=== PATIENT | male | born 1960 | race Caucasian/White ===

== ENCOUNTER 2020-09-10 11:18 | Emergency (ER) | payer BC ==
--- NOTE | 2020-09-10 13:49 | US ---
DUPLEX ARTERIAL ULTRASOUND LEFT LOWER EXTREMITY, 09/10/2020 COMPARISON: None. CLINICAL HISTORY: 59-year-old male with calf pain. Pulses are difficult to palpate. TECHNIQUE: Grayscale and color spectral Doppler ultrasound imaging of the left lower extremity arterial system was performed. FINDINGS: There is multiphasic flow in the common femoral artery with a velocity of 104 cm/second. Multiphasic flow in the deep femoral artery with a velocity of 46 cm/second. Multiphasic flow along the superficial femoral artery with velocities ranging between 52 cm/second and 60 cm/second. Multiphasic flow in the popliteal artery with a velocity of 38 cm/second proximally and 32 cm/second distally. Proximal posterior tibial artery has monophasic flow with a velocity of 18 cm/second. In the mid and distal portions, there is no flow. Multiphasic flow in the proximal anterior tibial artery with a velocity of 52 cm/second. Dorsalis pedis artery was not found. IMPRESSION: No evidence for hemodynamically-significant arterial stenosis or occlusion above the knee. There is disease in the distal runoff vessels with no flow in the distal posterior tibial or dorsalis pedis artery. This may be due to critical limb ischemia or could be acute thromboembolism, depending on the clinical scenario. Scott Choudhary M.D. Vascular [facility] Interventional [email or web address]/Dictated by: Scott Choudhary MD @ 09/11/2020 10:16:00 AM (Electronically Signed)
--- NOTE | 2020-09-10 13:53 | US ---
INDICATION: Calf pain. History of DVT. TECHNIQUE: Ultrasound venous duplex lower left extremity. Compression venous exam was performed using campbell-scale, color Doppler, and spectral Doppler analysis. COMPARISON: August 02, 2019. FINDINGS: Sonographic imaging demonstrates the left common femoral, deep femoral, superficial femoral, and greater saphenous and the contralateral right common femoral veins to be fully compressible with normal color Doppler blood flow. A nonocclusive relatively echogenic thrombus is in the popliteal vein extending a short distance into the posterior tibial vein. IMPRESSION: Chronic appearing nonocclusive DVT in the popliteal vein. Acute on chronic thrombus is not definite but difficult to exclude. Remainder of the veins in the left lower extremity are unremarkable. Dictated by Casa Galvan MD @ 09/10/2020 1:51:[address] Casa Galvan @ Sep 10 2020 1:51PM
[2020-09-10] MEDS ORDERED: Sodium Chloride 0.9% 10 ML Syringe FLUSH PRN (14:15)
[2020-09-10] MEDS ORDERED: Heparin Sodium 5,000 Units/ML Vial IVPUSH ONE (14:15)
[2020-09-10] MEDS ORDERED: Sodium Chloride 0.9% 2.5 ML Syringe FLUSH PRN (14:15)
[2020-09-10] MEDS ORDERED: Aspirin 81 MG Tab.Chew PO ONE (14:22)
[2020-09-10 14:29] LABS: CARBON DIOXIDE,CO2 24.9 mmol/L (21.0-32.0); POTASSIUM,K 4.1 mmol/L (3.5-5.1)
[2020-09-10] MEDS ORDERED: Heparin Sodium/0.45% NaCl 500 ML IV SCH (14:30)
--- NOTE | 2020-09-10 14:46 | EDM.PDOC ---
ED HPI GENERAL MEDICAL PROBLEM - General Chief Complaint: Lower Extremity Injury/Pain Stated Complaint: DVT Time Seen by Provider: 09/10/20 11:19 Source of Information: Reports: Patient History Limitations: Reports: No Limitations - History of Present Illness INITIAL COMMENTS - FREE TEXT/NARRATIVE: HISTORY AND PHYSICAL: History of present illness: Patient is a 59-year-old male who presents emergency room today with concern of left calf pain that started at about 8 this morning. Patient states that he had a DVT in his left calf approximately 1 year ago and states that at that time he had the same symptoms as he is having today. Patient denies any swelling or redness of the calf but states that he did not have this when he had a DVT 1 year ago. Patient states that he has been on blood thinning medication for 1 year but stopped the medication 1 month ago and guidance with his primary care provider. Patient denies any trauma or injury to the leg or any other associa tive symptoms. Patient denies fever, chills, chest pain, shortness of breath, or cough. Denies headache, neck stiff ness, change in vision, syncope, or near syncope. Denies nausea, vomiting, abdominal pain, diarrhea, constipation, or dysuria. Has not noted any blood in urine or stool. Patient has been eating and drinking appropriately. Review of systems: As per history of present illness and below otherwise all systems reviewed and negative. Past medical history: As per history of present illness and as reviewed below otherwise noncontributory. Surgical history: As per history of present illness and as reviewed below otherwise noncontributory. Social history: See social history for further information Family history: As per history of present illness and as reviewed below otherwise noncontributory. Physical exam: General: Patient is alert, oriented, and in no acute distress. Patient sitting comfortably on exam table. Vitals stable and reviewed by me. HEENT: Atraumatic, normocephalic, pupils equal and reactive bilaterally, negative for conjunctival pallor or scleral icterus, mucous membranes moist, TMs normal bilaterally, throat clear, neck supple, nontender, trachea midline. No drooling or trismus noted. No meningeal signs. No hot potato voice noted. Lungs: Clear to auscultation, breath sounds equal bilaterally, chest nontender. Heart: S1S2, regular rate and rhythm without overt murmur Abdomen: Soft, nondistended, nontender. Negative for masses or hepatosplenomegaly. Negative for costovertebral tenderness. Pelvis: Stable nontender. Genitourinary: Deferred. Rectal: Deferred. Skin: Intact, warm, dry. No lesions or rashes noted. Extremities: No obvious deformity of the complete bilateral lower extremities. Patient has full range of motion of bilateral lower extremities without pain or difficulty. Intact sensation to light and deep touch of complete bilateral lower extremities without deficit. DP/PT pulses are intact via doppler US but are difficult to palpate grossly but LLE is warm, with cap refill < 2 seconds of the LLE. Otherwise, Atraumatic, negative for cords or calf pain. Neurovascular unremarkable. Neuro: Awake, alert, oriented. Cranial nerves II through XII unremarkable. Cerebellum unremarkable. Motor and sensory unremarkable throughout. Exam nonfocal. Notes: On initial exam, patient is nontoxic, in no acute distress, and vitally stable. He does have intact sensation of his a complete left lower extremity with no obvious deformity, no erythema, and the lower extremity is warm with capillary refill less than 2 seconds. His dorsalis pedis and posterior tibial pulses are difficult to palpate grossly but they are intact with Doppler. Patient presents secondary to calf pain that started this morning which she describes as feeling similar to a DVT that he had approximately 1 year ago. He did stop blood thinning medication 1 month ago. Clinically I am concerned for DVT. Will obtain venous doppler US for concern DVT will also obtain arterial US due to difficulty grossly palpating pulses on exam but at this time, but are intact via doppler. The arterial ultrasound shows no distinct area of occlusion. Doppler blood flow decreases below the proximal posterior tibial artery and blood flow could be demonstrated in the foot. No other distinct abnormality. Venous ultrasound shows a chronic appearing nonocclusive DVT in the popliteal vein. Acute on chronic thrombus is not definite but difficult to exclude. Remainder of the veins in the left lower extremity are unremarkable. Upon reevaluation of patient, examination of his foot now shows that it is white, cold but kurtis is still able to move the foot / digits and intact sensation. He stats that this did happen earlier this morning but resolved once getting to the ED during my examination. He does express a new "tingly" sensation of the toes. I am concerned for acute arterial ischemia / occlusion. Color improvement noted slightly when patient sits vs laying down. Heparin bolus / gtt initiated. I did call and speak to the vascular surgeon, Dr. Rollins, [facility] and accepting of transfer and will transfer via Flight. Flight arranged. Flight is delayed 45 minutes due to other patient status. Flight at bedside. Patient discharged to flight in stable condition. Diagnostics: Venous/arterial US, CBC, CMP, PT/INR, PTT Therapeutics: ASA, Heparin GTT/Bolus Impression: Acute arterial ischemia/occlusion, left lower extremity Deep venous thrombosis, left lower extremity Plan: Transfer to Dr. Rollins, vascular surgery, via flight Definitive disposition and diagnosis as appropriate pending reevaluation and review of above. left calf Pain Score (Numeric/FACES): 2 - Related Data Allergies Allergy/AdvReac Type Severity Reaction Status Date / Time No Known Allergies Allergy Verified 09/10/20 11:34 Home Meds: Home Meds . [No Known Home Meds] 09/10/20 [History] Past Medical History Cardiovascular History: Reports: Blood Clots/VTE/DVT - Infectious Disease History Infectious Disease History: Reports: None Social & Family History - Family History Family Medical History: No Pertinent Family History - Tobacco Use Tobacco Use Status *Q: Never Tobacco User - Caffeine Use Caffeine Use: Reports: None - Recreational Drug Use Recreational Drug Use: No Review of Systems - Review of Systems Review Of Systems: Comprehensive ROS is negative, except as noted in HPI. ED EXAM, GENERAL - Physical Exam Exam: See Below (see dictation) Course - Vital Signs Last Recorded V/S: Last Vital Signs Temp 97.8 F 09/10/20 11:35 Pulse 74 09/10/20 11:35 Resp 18 09/10/20 11:35 BP 185/75 H 09/10/20 11:35 Pulse Ox 98 09/10/20 11:35 - Orders/Labs/Meds Orders: Active Orders 24 hr Category Date Time Status Heparin Sodium/0.45% NaCl [Heparin 25,000 Units in 1/2 Med 09/10/20 14:30 Active NS 500 ML] 500 ml IV TITRATE Sodium Chloride 0.9% [Saline Flush] Med 09/10/20 14:15 Active 10 ml FLUSH ASDIRECTED PRN Sodium Chloride 0.9% [Saline Flush] Med 09/10/20 14:15 Active 2.5 ml FLUSH ASDIRECTED PRN Saline Lock Insert [OM.PC] Stat Oth 09/10/20 14:15 Ordered Medication Orders Heparin Sodium/Sodium Chloride (Heparin 25,000 Units In 1/2 Ns 500 Ml) 500 mls @ 25.958 mls/hr IV TITRATE JESSE; Protocol Last Admin: 09/10/20 14:40 Dose: 12.8 units/kg/hr, 25.958 mls/hr Documented by: MARGARET Cosigned by: SANDRA Sodium Chloride (Sodium Chloride 0.9% 10 Ml Syringe) 10 ml FLUSH ASDIRECTED PRN PRN Reason: Keep Vein Open Last Admin: 09/10/20 14:39 Dose: 10 ml Documented by: MARGARET Sodium Chloride (Sodium Chloride 0.9% 2.5 Ml Syringe) 2.5 ml FLUSH ASDIRECTED PRN PRN Reason: Keep Vein Open Last Admin: 09/10/20 14:39 Dose: 2.5 ml Documented by: MARGARET Labs: Laboratory Tests 09/10/20 09/10/20 09/10/20 Range/Units 11:40 11:40 11:40 WBC 7.49 (4.0-11.0) K/uL RBC 5.62 (4.50-5.90) M/uL Hgb 17.3 H (13.0-17.0) g/dL Hct 50.4 H (38.0-50.0) % MCV 89.7 (80.0-98.0) fL MCH 30.8 (27.0-32.0) pg MCHC 34.3 (31.0-37.0) g/dL RDW Std Deviation 44.3 (28.0-62.0) fl RDW Coeff of Boy 14 (11.0-15.0) % Plt Count 170 (150-400) K/uL MPV 9.60 (7.40-12.00) fL Neut % (Auto) 56.1 (48.0-80.0) % Lymph % (Auto) 27.8 (16.0-40.0) % Boyle % (Auto) 12.4 (0.0-15.0) % Eos % (Auto) 3.3 (0.0-7.0) % Baso % (Auto) 0.4 (0.0-1.5) % Neut # (Auto) 4.2 (1.4-5.7) K/uL Lymph # (Auto) 2.1 (0.6-2.4) K/uL Boyle # (Auto) 0.9 H (0.0-0.8) K/uL Eos # (Auto) 0.3 (0.0-0.7) K/uL Baso # (Auto) 0.0 (0.0-0.1) K/uL Nucleated RBC % 0.0 /100WBC Nucleated RBCs # 0 K/uL INR 1.00 APTT 26.9 (18.6-31.3) SEC Sodium 139 (136-148) mmol/L Potassium 4.1 (3.5-5.1) mmol/L Chloride 103 (98-107) mmol/L Carbon Dioxide 24.9 (21.0-32.0) mmol/L BUN 17 (7.0-18.0) mg/dL Creatinine 1.4 H (0.8-1.3) mg/dL Est Cr Clr Drug Dosing 59.38 mL/min Estimated GFR (MDRD) 52.1 ml/min Glucose 99 (74-106) mg/dL Calcium 8.7 (8.5-10.1) mg/dL Total Bilirubin 0.4 (0.2-1.0) mg/dL AST 23 (15-37) IU/L ALT 41 (14-63) IU/L Alkaline Phosphatase 52 (46-116) U/L Total Protein 7.8 (6.4-8.2) g/dL Albumin 3.7 (3.4-5.0) g/dL Globulin 4.1 H (2.6-4.0) g/dL Albumin/Globulin Ratio 0.9 (0.9-1.6) Influenza Type A RNA (NEGATIVE) Influenza Type B RNA (NEGATIVE) SARS-CoV-2 RNA (RAMIN) (NEGATIVE) 09/10/20 Range/Units 14:25 WBC (4.0-11.0) K/uL RBC (4.50-5.90) M/uL Hgb (13.0-17.0) g/dL Hct (38.0-50.0) % MCV (80.0-98.0) fL MCH (27.0-32.0) pg MCHC (31.0-37.0) g/dL RDW Std Deviation (28.0-62.0) fl RDW Coeff of Boy (11.0-15.0) % Plt Count (150-400) K/uL MPV (7.40-12.00) fL Neut % (Auto) (48.0-80.0) % Lymph % (Auto) (16.0-40.0) % Boyle % (Auto) (0.0-15.0) % Eos % (Auto) (0.0-7.0) % Baso % (Auto) (0.0-1.5) % Neut # (Auto) (1.4-5.7) K/uL Lymph # (Auto) (0.6-2.4) K/uL Boyle # (Auto) (0.0-0.8) K/uL Eos # (Auto) (0.0-0.7) K/uL Baso # (Auto) (0.0-0.1) K/uL Nucleated RBC % /100WBC Nucleated RBCs # K/uL INR APTT (18.6-31.3) SEC Sodium (136-148) mmol/L Potassium (3.5-5.1) mmol/L Chloride (98-107) mmol/L Carbon Dioxide (21.0-32.0) mmol/L BUN (7.0-18.0) mg/dL Creatinine (0.8-1.3) mg/dL Est Cr Clr Drug Dosing mL/min Estimated GFR (MDRD) ml/min Glucose (74-106) mg/dL Calcium (8.5-10.1) mg/dL Total Bilirubin (0.2-1.0) mg/dL AST (15-37) IU/L ALT (14-63) IU/L Alkaline Phosphatase (46-116) U/L Total Protein (6.4-8.2) g/dL Albumin (3.4-5.0) g/dL Globulin (2.6-4.0) g/dL Albumin/Globulin Ratio (0.9-1.6) Influenza Type A RNA NEGATIVE (NEGATIVE) Influenza Type B RNA NEGATIVE (NEGATIVE) SARS-CoV-2 RNA (RAMIN) NEGATIVE (NEGATIVE) Meds: Medications Generic Name Dose Route Start Last Admin Trade Name Freq PRN Reason Stop Dose Admin Heparin Sodium/Sodium Chloride 500 mls @ 25.958 mls/hr 09/10/20 14:30 09/10/20 14:40 Heparin 25,000 Units In 1/2 Ns 500 Ml IV 12.8 units/kg/hr TITRATE JESSE 25.958 mls/hr Administration Protocol 12.8 UNITS/KG/HR Sodium Chloride 10 ml 09/10/20 14:15 09/10/20 14:39 Sodium Chloride 0.9% 10 Ml Syringe FLUSH 10 ml ASDIRECTED PRN Administration Keep Vein Open Sodium Chloride 2.5 ml 09/10/20 14:15 09/10/20 14:39 Sodium Chloride 0.9% 2.5 Ml Syringe FLUSH 2.5 ml ASDIRECTED PRN Administration Keep Vein Open Discontinued Medications Generic Name Dose Route Start Last Admin Trade Name Freq PRN Reason Stop Dose Admin Aspirin 324 mg 09/10/20 14:22 09/10/20 14:39 Aspirin 81 Mg Tab.Chew PO 09/10/20 14:23 324 mg ONETIME ONE Administration Heparin Sodium (Porcine) 5,000 units 09/10/20 14:15 09/10/20 14:40 Heparin Sodium 5,000 Units/Ml Vial IVPUSH 09/10/20 14:16 5,000 units .BOLUS ONE Administration Protocol Departure - Departure Time of Disposition: 14:54 Disposition: DC/Tfer to [facility] 02 Clinical Impression: Acute occlusion of artery of lower extremity Chronic deep vein thrombosis (DVT) Qualifiers: DVT location: lower extremity Affected thrombotic vein of extremity: unspecified vein of extremity Laterality: left Qualified Code(s): I82.502 - Chronic embolism and thrombosis of unspecified deep veins of left lower extremity - Discharge Information Referrals: Matt Ovalle MD [Primary Care Provider] - Forms: ED Department Discharge Sepsis Event Note (ED) - Evaluation Sepsis Screening Result: No Definite Risk - Focused Exam Vital Signs: Vital Signs Temp Pulse Resp BP Pulse Ox 09/10/20 11:35 97.8 F 74 18 185/75 H 98 - My Orders Last 24 Hours: My Active Orders 09/10/20 14:15 Sodium Chloride 0.9% [Saline Flush] 10 ml FLUSH ASDIRECTED PRN Sodium Chloride 0.9% [Saline Flush] 2.5 ml FLUSH ASDIRECTED PRN Saline Lock Insert [OM.PC] Stat 04/25/21 14:30 Heparin Sodium/0.45% NaCl [Heparin 25,000 Units in 1/2 NS 500 ML] 500 ml IV TITRATE - Assessment/Plan Last 24 Hours: My Active Orders 09/10/20 14:15 Sodium Chloride 0.9% [Saline Flush] 10 ml FLUSH ASDIRECTED PRN Sodium Chloride 0.9% [Saline Flush] 2.5 ml FLUSH ASDIRECTED PRN Saline Lock Insert [OM.PC] Stat 09/10/20 14:30 Heparin Sodium/0.45% NaCl [Heparin 25,000 Units in 1/2 NS 500 ML] 500 ml IV TITRATE
[2020-09-10 15:13] LABS: CORONAVIRUS COVID-19 NAA NEGATIVE (NEGATIVE); INFLUENZA A NAA NEGATIVE (NEGATIVE); INFLUENZA B NAA NEGATIVE (NEGATIVE)
== END 2020-09-10 16:09 ==
LOC: MW.ED 11:18
DX: I82.532 Chronic embolism and thrombosis of left popliteal vein (principal); I70.202 Unspecified atherosclerosis of native arteries of extremities, left leg; Z20.822 Contact with and (suspected) exposure to COVID-19
CPT/HCPCS: 0240U; 36415; 80053; 85025; 85610; 85730; 93926; 93971; 96365; 99285; A9270; J1644

== ENCOUNTER 2020-09-28 14:08 | Emergency (ER) | payer BC ==
--- NOTE | 2020-09-28 14:47 | EDM.PDOC ---
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 The patient states that he had been doing fine until the left ankle incision started to turn red a few days ago. He states that he was started on Keflex and it has continued to leak. He states that the redness has improved. He denies any increased pain. He states that it seems to be exacerbated by him walking on it. He was told by his vascular surgeon that he did not need a crutch and to continue with movement. He states that he has been following up with his primary care physician when he was sent here today because of concern for possible abscess. He denies any fevers, chills, numbness, tingling, weakness. REVIEW OF SYSTEMS: Constitutional: Denies fever, chills. Eyes: Denies eye pain Ears, Nose, Mouth, & Throat: Denies earache Cardiovascular: Denies chest pain Respiratory: Denies shortness of breath Gastrointestinal: Denies Nausea, vomiting, diarrhea, hematochezia. Genitourinary: Denies hematuria Skin: Positive for left medial ankle skin infection with drainage MSK: Denies joint pain Neurological: Denies blurred vision Psychiatric: Denies depression PAST MEDICAL HISTORY: As per history of present illness and as reviewed below otherwise noncontributory. SURGICAL HISTORY: As per history of present illness and as reviewed below otherwise noncontributory. SOCIAL HISTORY: As per history of present illness and as reviewed below otherwise noncontributory. FAMILY HISTORY: As per history of present illness and as reviewed below otherwise noncontributory. EXAMINATION OF ORGAN SYSTEMS/BODY AREAS: Constitutional: Blood pressure is 151/91, heart rate 100, respiratory rate 18 with an oxygen saturation 97% on room air. Temperature 98.6 F General: Overall well-appearing man who is in no acute distress Psychiatric: Appropriate mood and affect. Eyes: No scleral icterus or conjunctival erythema ENMT: Moist mucous membranes. No pharyngeal erythema Cardiovascular: Regular, rate, and rhythm. No gallops, murmurs, or rubs. Bilateral upper and lower extremity pulses are symmetric and intact. Capillary refill is less than 2 seconds in bilateral lower extremities. Mild left lower extremity swelling. Respiratory: Lungs clear to auscultation bilaterally. No wheezes, rales, or rhonchi. Gastrointestinal: Soft, non-tender, non-distended. Normoactive bowel sounds Genitourinary: No suprapubic tenderness Musculoskeletal: Normal range of motion. Skin: The patient has 2 well-healing postsurgical wounds with stitches in place on the left anterior lower leg and left lateral lower leg. There is an area on the patient's left medial ankle that is a postsurgical wound with some rounding erythema. No purulence could be appreciated. There are stitches in place. Neurological: Alert, GCS 15 MEDICAL DECISION MAKING AND COURSE IN THE ED WITH INTERPRETATION/REVIEW OF DIAGNOSTIC STUDIES: This is a 59-year-old and with a recent left lower extremity arterial occlusion status post thrombectomy x2 with resultant wound infection on Keflex who comes to the emergency department with left medial ankle wound drainage and erythema. The patient reports that the erythema has improved however the drainage has increased. The drainage on the gauze is yellow/white in color. No purulence could be appreciated however deep abscess cannot be ruled out. Will obtain a CT of the lower extremity for evaluation of abscess. Will obtain basic labs. The patient is currently not in any pain therefore we will hold off on pain medication. Laboratory: CBC is unremarkable. ESR is 13. BMP is unremarkable. Except for some hypocalcemia at 8.1. CRP is less than 0.20. The radiological images were viewed by myself along with reading the report from the radiologist. CT of the lower extremity with contrast reveals a fluid collection in the medial distal calf and proximal ankle measuring 2.8 x 1.1 x 9.2 cm differential does include postoperative seroma versus abscess. There was no definitive bubbles of gas within this fluid. No evidence osteomyelitis. There is satisfactory triple-vessel runoff into the distal calf with posterior tibial artery appearing to cross the ankle. After imaging I did contact [facility] in [place] and spoke with Dr. Arnett vascular surgeon on-call regarding the imaging results. At this time she stated that the vessel read on the CT is normal postoperative change and that she does believe this is likely a seroma given the laboratory analysis and the patient presentation. She does recommend continued Keflex antibiotic use and to follow- up with her tomorrow if he wants to follow-up tomorrow otherwise follow-up at his scheduled appointment. I spoke with the patient regarding the results and plan. He was amenable to this plan. He was given strict return precautions. The patient was amenable discharge at this time and had no further questions DISPOSITION: The patient was discharged home in stable condition. The patient will follow up with vascular surgery within 1 to 3 days CONDITION: Fair PROCEDURES: None FINAL IMPRESSION(S)/DIAGNOSES: 1. Acute postoperative cellulitis 2. Acute postoperative seroma of the left lower extremity Artie Hendrix M.D. left lower leg Pain Score (Numeric/FACES): 1 - Related Data Allergies Allergy/AdvReac Type Severity Reaction Status Date / Time heparin Allergy Unknown Other Verified 09/28/20 14:49 Home Meds: Home Meds Apixaban [Eliquis] 09/28/20 [History] cephALEXin [Cephalexin] 09/28/20 [History] Past Medical History Cardiovascular History: Reports: Blood Clots/VTE/DVT - Infectious Disease History Infectious Disease History: Reports: None Social & Family History - Family History Family Medical History: No Pertinent Family History - Caffeine Use Caffeine Use: Reports: None ED ROS GENERAL - Review of Systems Review Of Systems: See Below ED EXAM, SKIN/RASH Exam: See Below Course - Vital Signs Last Recorded V/S: Last Vital Signs Temp 37.0 C 09/28/20 14:38 Pulse 78 09/28/20 15:38 Resp 18 09/28/20 15:38 BP 151/72 H 09/28/20 15:38 Pulse Ox 98 09/28/20 15:38 - Orders/Labs/Meds Labs: Laboratory Tests 09/28/20 09/28/20 09/28/20 Range/Units 14:59 14:59 14:59 WBC 8.45 (4.0-11.0) K/uL RBC 4.44 L (4.50-5.90) M/uL Hgb 13.6 (13.0-17.0) g/dL Hct 40.7 (38.0-50.0) % MCV 91.7 (80.0-98.0) fL MCH 30.6 (27.0-32.0) pg MCHC 33.4 (31.0-37.0) g/dL RDW Std Deviation 47.7 (28.0-62.0) fl RDW Coeff of Boy 14 (11.0-15.0) % Plt Count 355 (150-400) K/uL MPV 9.50 (7.40-12.00) fL Neut % (Auto) 65.0 (48.0-80.0) % Lymph % (Auto) 24.6 (16.0-40.0) % Lea % (Auto) 8.5 (0.0-15.0) % Eos % (Auto) 1.5 (0.0-7.0) % Baso % (Auto) 0.4 (0.0-1.5) % Neut # (Auto) 5.5 (1.4-5.7) K/uL Lymph # (Auto) 2.1 (0.6-2.4) K/uL Lea # (Auto) 0.7 (0.0-0.8) K/uL Eos # (Auto) 0.1 (0.0-0.7) K/uL Baso # (Auto) 0.0 (0.0-0.1) K/uL Nucleated RBC % 0.0 /100WBC Nucleated RBCs # 0 K/uL ESR 13 (0-19) mm/hr Sodium 138 (136-148) mmol/L Potassium 3.8 (3.5-5.1) mmol/L Chloride 102 (98-107) mmol/L Carbon Dioxide 26.9 (21.0-32.0) mmol/L BUN 24 H (7.0-18.0) mg/dL Creatinine 1.3 (0.8-1.3) mg/dL Est Cr Clr Drug Dosing 63.95 mL/min Estimated GFR (MDRD) 56.7 ml/min Glucose 148 H (74-106) mg/dL Calcium 8.1 L (8.5-10.1) mg/dL C-Reactive Protein < 0.20 (0.00-0.90) mg/dL Meds: Medications Discontinued Medications Generic Name Dose Route Start Last Admin Trade Name Freq PRN Reason Stop Dose Admin Iopamidol 100 ml 09/28/20 16:26 09/28/20 16:26 Iopamidol 755 Mg/Ml 500 Ml Multipack Bottle IVPUSH 09/28/20 16:27 100 ml ONETIME STA Administration Departure - Departure Time of Disposition: 17:54 Disposition: Home, Self-Care 01 Condition: Fair Clinical Impression: Cellulitis, Seroma after procedure - Discharge Information *PRESCRIPTION DRUG MONITORING PROGRAM REVIEWED*: No *COPY OF PRESCRIPTION DRUG MONITORING REPORT IN PATIENT VALERIO: No Instructions: Cellulitis, Adult, [id number] Referrals: Sanjuanita Pineda MD [Primary Care Provider] - Forms: ED Department Discharge Additional Instructions: You evaluate today on an emergent basis. At this time your CT did show a fluid collection on your left middle ankle and calf. All of your labs were within normal limits and he did not have a fever. I did speak with vascular surgeon Dr. Arnett at [facility] in [place] and she recommended continuing to take the Keflex and she believes that this is likely a seroma. This area may continue to drain however if the redness worsens or it starts turning different colors I would return to the emergency department. Dr. Arnett stated that you could follow-up tomorrow in her clinic in [place] please contact the clinic number that was provided with your discharge. Otherwise please keep your appointment with your surgeon next week. [facility] - Primary Care [address] [place] [address] [place] [address] The patient is informed of any results of their evaluation and diagnostic workup and all questions are answered. They are given discharge instructions and return precautions. The patient is stable for discharge. The patient states they understand and agree with the plan and that they will return if their symptoms get worse or if they have any new concerns. The following information is given to patients seen in the emergency department who are being discharged to home. This information is to outline your options for follow-up care. We provide all patients seen in our emergency department with a follow-up referral. The need for follow-up, as well as the timing and circumstances, are variable depending upon the specifics of your emergency department visit. If you don't have a primary care physician on staff, we will provide you with a referral. We always advise you to contact your personal physician following an emergency department visit to inform them of the circumstance of the visit and for follow-up with them and/or the need for any referrals to a consulting specialist. The emergency department will also refer you to a specialist when appropriate. This referral assures that you have the opportunity for follow-up care with a specialist. All of these measure are taken in an effort to provide you with optimal care, which includes your follow-up. Under all circumstances we always encourage you to contact your private physician who remains a resource for coordinating your care. When calling for follow-up care, please make the office aware that this follow-up is from your recent emergency room visit. If for any reason you are refused follow-up, please contact the [facility] Emergency Department at and asked to speak to the emergency department charge nurse. Sepsis Event Note (ED) - Focused Exam Vital Signs: Vital Signs Temp Pulse Resp BP Pulse Ox 09/28/20 15:38 78 18 151/72 H 98 09/28/20 14:38 37.0 C 100 18 151/91 H 97
[2020-09-28 15:42] LABS: BLOOD UREA NITROGEN,BUN 24 mg/dL (7.0-18.0); CARBON DIOXIDE,CO2 26.9 mmol/L (21.0-32.0); CHLORIDE,CL 102 mmol/L (98-107); GLUCOSE RANDOM 148 mg/dL (74-106); POTASSIUM,K 3.8 mmol/L (3.5-5.1); SODIUM,NA 138 mmol/L (136-148)
[2020-09-28] MEDS ORDERED: Iopamidol 755 MG/ML 500 ML Multipack Bottle IVPUSH STA (16:26)
--- NOTE | 2020-09-28 17:24 | CT ---
Indication: Status post thrombectomy recently. Possible infection. Evaluate for abscess or osteomyelitis. Technique: Contrast enhanced spiral CT examination of the left calf is performed with the uneventful intravenous administration of 100 cc of Isovue 370 for spiral acquisition. 0.8 and 2 millimeter thick axial and 2 millimeter thick sagittal and coronal reconstructions are made from the data. Comparison: Ultrasound of the arterial supply and venous drainage of the left lower extremity from 09/10/2020 Findings: There does appear to be satisfactory enhancement of the distal superficial femoral artery, popliteal artery, origin of the anterior tibial artery, and tibial peroneal trunk. There appears to be triple vessel runoff to the distal calf, with a the posterior tibial artery crossing the ankle. Both the anterior tibial and peroneal arteries reach the ankle. There may be occlusion of the distal anterior tibial artery proximal to the ankle, with the distal anterior tibial artery not definitely crossing the ankle. Venous enhancement is not prominent enough to permit evaluation for venous thrombosis. There is soft tissue swelling along the medial aspect of the distal calf extending into the proximal ankle. There is a small fluid collection in this region consistent with a postoperative seroma or abscess. This measures 2.8 x 1.1 x 9.2 centimeters, best seen on axial image 199 series 301 and coronal image 53 series 3 L4. There are no definite bubbles of gas within this region to indicate an abscess. A surgical clip is seen at both the superior and inferior ends of this fluid collection. There is no sign of any associated osseous destruction to suggest osteomyelitis of the adjacent distal tibia. The rest of the soft tissues are unremarkable. There is no sign of any deeper muscular inflammation or swelling. The osseous structures are normal in appearance with no sign of any fracture, dislocation, or significant degenerative disease. Impression: Fluid collection in the medial distal calf and proximal ankle measuring 2.8 x 1.1 x 9.2 centimeters, postoperative seroma versus abscess. No definite bubbles of gas within this fluid collection to indicate an abscess. No sign of any associated osteomyelitis of the medial distal tibia. Satisfactory triple-vessel runoff into the distal calf, with the posterior tibial artery appearing to cross the ankle. Please note that all CT scans at this facility use dose modulation, iterative reconstruction, and/or weight-based dosing when appropriate to reduce radiation dose to as low as reasonably achievable. Dictated by Chetan Bailey MD @ 09/28/2020 5:23:[address] Chetan Bailey @ Sep 28 2020 5:23PM
== END 2020-09-28 18:08 | disposition home or self-care (01) ==
LOC: MW.ED 14:08
DX: L76.34 Postprocedural seroma of skin and subcutaneous tissue following other procedure (principal); L03.116 Cellulitis of left lower limb; Z79.82 Long term (current) use of aspirin; Z88.8 Allergy status to other drugs, medicaments and biological substances
CPT/HCPCS: 36415; 73701; 80048; 85025; 85652; 86140; 99284; Q9967

== ENCOUNTER 2021-01-24 02:58 | Emergency (ER) | payer BC, OTHER ==
[2021-01-24] MEDS ORDERED: Sodium Chloride 0.9% 1,000 ML IV ONE (03:20)
[2021-01-24] MEDS ORDERED: Ketorolac 15 MG/ML SDV IVPUSH ONE (03:20)
--- NOTE | 2021-01-24 03:23 | EDM.PDOC ---
ED HPI GENERAL MEDICAL PROBLEM - General Chief Complaint: Genitourinary Problem Stated Complaint: PAIN LOWER BACK- LEFT SIDE Time Seen by Provider: 01/24/21 03:20 Source of Information: Reports: Patient History Limitations: Reports: No Limitations - History of Present Illness INITIAL COMMENTS - FREE TEXT/NARRATIVE: Patient is a 60-year-old male presents today for left-sided flank pain. States started around midnight has been constant in nature and achy. Today radiates down to his hip as well. Not made better or worse with any events. Is not take any medicine for this at home. He never had similar pain like this in the past. Also reported some nausea but no vomiting. Left Flank Pain Score (Numeric/FACES): 9 - Related Data Allergies Allergy/AdvReac Type Severity Reaction Status Date / Time heparin Allergy Unknown Other Verified 09/28/20 14:49 Home Meds: Home Meds Apixaban [Eliquis] 5 mg PO BID 09/28/20 [History] Past Medical History Cardiovascular History: Reports: Blood Clots/VTE/DVT Other Cardiovascular History: recent surgery for DVT to left lower extremity. States he has no other cardiac hx - Infectious Disease History Infectious Disease History: Reports: None - Past Surgical History Cardiovascular Surgical History: Reports: Vascular Surgery Social & Family History - Family History Family Medical History: No Pertinent Family History - Caffeine Use Caffeine Use: Reports: None ED ROS GENERAL - Review of Systems Review Of Systems: See Below Constitutional: Reports: No Symptoms HEENT: Reports: No Symptoms Respiratory: Reports: No Symptoms Cardiovascular: Reports: No Symptoms Endocrine: Reports: No Symptoms GI/Abdominal: Reports: Other (Flank pain) : Reports: No Symptoms Musculoskeletal: Reports: No Symptoms Skin: Reports: No Symptoms Neurological: Reports: No Symptoms Psychiatric: Reports: No Symptoms Hematologic/Lymphatic: Reports: No Symptoms Immunologic: Reports: No Symptoms ED EXAM, GI/ABD - Physical Exam Exam: See Below Exam Limited By: No Limitations General Appearance: Alert, WD/WN, No Apparent Distress Head: Atraumatic Respiratory/Chest: No Respiratory Distress, Lungs Clear, Normal Breath Sounds Cardiovascular: Normal Peripheral Pulses, Regular Rate, Rhythm GI/Abdominal Exam: Normal Bowel Sounds, Soft, Non-Tender Back Exam: No: CVA Tenderness (L), CVA Tenderness (R) Extremities: Normal Inspection Neurological: Alert, Oriented, Normal Cognition, Normal Gait Course - Vital Signs Last Recorded V/S: Last Vital Signs Temp 96.6 F L 01/24/21 03:17 Pulse 101 H 01/24/21 03:17 Resp 19 01/24/21 03:17 BP 180/74 H 01/24/21 03:17 Pulse Ox 95 01/24/21 03:17 - Orders/Labs/Meds Labs: Laboratory Tests 01/24/21 01/24/21 01/24/21 Range/Units 03:15 03:15 04:15 WBC 11.96 H (4.0-11.0) K/uL RBC 5.69 (4.50-5.90) M/uL Hgb 16.9 (13.0-17.0) g/dL Hct 48.7 (38.0-50.0) % MCV 85.6 (80.0-98.0) fL MCH 29.7 (27.0-32.0) pg MCHC 34.7 (31.0-37.0) g/dL RDW Std Deviation 45.6 (28.0-62.0) fl RDW Coeff of Boy 15 (11.0-15.0) % Plt Count 205 (150-400) K/uL MPV 9.70 (7.40-12.00) fL Neut % (Auto) 73.0 (48.0-80.0) % Lymph % (Auto) 17.0 (16.0-40.0) % Sunflower % (Auto) 8.6 (0.0-15.0) % Eos % (Auto) 1.2 (0.0-7.0) % Baso % (Auto) 0.2 (0.0-1.5) % Neut # (Auto) 8.7 H (1.4-5.7) K/uL Lymph # (Auto) 2.0 (0.6-2.4) K/uL Sunflower # (Auto) 1.0 H (0.0-0.8) K/uL Eos # (Auto) 0.1 (0.0-0.7) K/uL Baso # (Auto) 0.0 (0.0-0.1) K/uL Nucleated RBC % 0.0 /100WBC Nucleated RBCs # 0 K/uL Sodium 135 L (136-148) mmol/L Potassium 4.0 (3.5-5.1) mmol/L Chloride 101 (98-107) mmol/L Carbon Dioxide 27.5 (21.0-32.0) mmol/L BUN 22 H (7.0-18.0) mg/dL Creatinine 1.3 (0.8-1.3) mg/dL Est Cr Clr Drug Dosing 63.17 mL/min Estimated GFR (MDRD) 56.5 ml/min Glucose 124 H (74-106) mg/dL Calcium 8.3 L (8.5-10.1) mg/dL Total Bilirubin 0.3 (0.2-1.0) mg/dL AST 24 (15-37) IU/L ALT 38 (14-63) IU/L Alkaline Phosphatase 50 (46-116) U/L Total Protein 7.4 (6.4-8.2) g/dL Albumin 3.9 (3.4-5.0) g/dL Globulin 3.5 (2.6-4.0) g/dL Albumin/Globulin Ratio 1.1 (0.9-1.6) Urine Color BROWN Urine Appearance CLOUDY Urine pH 5.5 (5.0-8.0) Ur Specific [place] 1.025 (1.001-1.035) Urine Protein 100 H (NEGATIVE) mg/dL Urine Glucose (UA) NEGATIVE (NEGATIVE) mg/dL Urine Ketones NEGATIVE (NEGATIVE) mg/dL Urine Occult Blood LARGE H (NEGATIVE) Urine Nitrite NEGATIVE (NEGATIVE) Urine Bilirubin SMALL H (NEGATIVE) Urine Ictotest NEGATIVE Urine Urobilinogen 0.2 (<2.0) EU/dL Ur Leukocyte Esterase TRACE H (NEGATIVE) Urine RBC TOO NUMEROUS TO CT (0-2/HPF) Urine WBC 0-2 (0-5/HPF) Ur Epithelial Cells RARE (NONE-FEW) Urine Bacteria FEW (NEGATIVE) Urine Mucus LIGHT (NONE-MOD) Meds: Medications Discontinued Medications Generic Name Dose Route Start Last Admin Trade Name Freq PRN Reason Stop Dose Admin Sodium Chloride 1,000 mls @ 999 mls/hr 01/24/21 03:20 01/24/21 03:34 Normal Saline IV 01/24/21 04:20 999 mls/hr .BOLUS ONE Administration Ketorolac Tromethamine 15 mg 01/24/21 03:20 01/24/21 03:34 Ketorolac 15 Mg/Ml Sdv IVPUSH 01/24/21 03:21 15 mg ONETIME ONE Administration - Re-Assessments/Exams Free Text/Narrative Re-Assessment/Exam: 01/24/21 04:40 Patient has a small dose to 2 mm stone. Patient will be discharged home with pain meds and will follow with urology. Departure - Departure Time of Disposition: 04:40 Disposition: Home, Self-Care 01 Condition: Good Clinical Impression: Renal colic on left side - Discharge Information *PRESCRIPTION DRUG MONITORING PROGRAM REVIEWED*: Not Applicable *COPY OF PRESCRIPTION DRUG MONITORING REPORT IN PATIENT VALERIO: Not Applicable Instructions: Kidney Stones, [id number] Referrals: Matt Ovalle MD [Primary Care Provider] - Forms: ED Department Discharge Additional Instructions: The following information is given to patients seen in the emergency department who are being discharged to home. This information is to outline your options for follow-up care. We provide all patients seen in our emergency department with a follow-up referral. The need for follow-up, as well as the timing and circumstances, are variable depending upon the specifics of your emergency department visit. If you don't have a primary care physician on staff, we will provide you with a referral. We always advise you to contact your personal physician following an emergency department visit to inform them of the circumstance of the visit and for follow-up with them and/or the need for any referrals to a consulting specialist. The emergency department will also refer you to a specialist when appropriate. This referral assures that you have the opportunity for follow-up care with a specialist. All of these measure are taken in an effort to provide you with optimal care, which includes your follow-up. Under all circumstances we always encourage you to contact your private physician who remains a resource for coordinating your care. When calling for follow-up care, please make the office aware that this follow-up is from your recent emergency room visit. If for any reason you are refused follow-up, please contact the [facility] Emergency Department at and asked to speak to the emergency department charge nurse. Please follow up with your primary care physician. If you do not have a primary care physician, see below: [facility] Urology [address] [place] [id number]- Urology [phone] [address], [place] [address] [address] You are seen today for a kidney stone on your left side that was 2 mm in size. The size kidney stone should pass out any issue. We recommend you stay hydrated and continue to drink lots of fluids. We also sent home with pain meds antibiotic to take. Above number he can call for follow-up. He should be seen by urologist we can follow-up to primary care physician. Sepsis Event Note (ED) - Focused Exam Vital Signs: Vital Signs Temp Pulse Resp BP Pulse Ox 01/24/21 03:17 96.6 F L 101 H 19 180/74 H 95 - Assessment/Plan Plan: Patient is a 60-year-old male presents today for left-sided flank pain. Will provide pain control IV fluids and CT abdomen pelvis rule out stones.
[2021-01-24 03:40] LABS: CARBON DIOXIDE,CO2 27.5 mmol/L (21.0-32.0)
--- NOTE | 2021-01-24 04:14 | CT ---
INDICATION: Left flank pain. COMPARISON: None available TECHNIQUE: CT examination of the abdomen and pelvis was performed without contrast enhancement using 2.5 mm thick axial sections from the lung bases through the pubic symphysis. Oral contrast was not administered. Please note that all CT scans at this facility use dose modulation, iterative reconstruction, and/or weight-based dosing when appropriate to reduce radiation dose to as low as reasonably achievable. FINDINGS: There is minimal left hydronephrosis with no hydroureter. This is produced by a 2 millimeter calculus located at the mid L5 level. There is no sign of any additional renal or ureteral calculi. The kidneys are otherwise normal in appearance. In the abdomen, the unenhanced liver, spleen, pancreas, and adrenals are normal in appearance. The gallbladder is normal in appearance. The abdominal aorta is normal in caliber with no sign of dilatation. There is no sign of retroperitoneal mass or adenopathy. The stomach, loops of small bowel, and colon in the abdomen are normal in appearance. In the pelvis, the appendix is nonvisualized, but there is no sign of an inflammatory process in the area of the appendix. The loops of small bowel and colon in the pelvis are normal in appearance. The prostate is moderately enlarged and is otherwise normal in appearance. The urinary bladder is normal in appearance. There is no sign of pelvic or inguinal mass or adenopathy. There is no sign of free air or free fluid in the abdomen or pelvis. The lung bases are clear. There is mild L3-4 and L4-5 disc degenerative disease. IMPRESSION: Minimal left hydronephrosis without left hydroureter produced by a 2 millimeter calculus located at the mid L5 level. CT of the abdomen shows no sign of any additional renal or ureteral calculi. CT of the pelvis shows moderate enlargement of the prostate. Please note that all CT scans at this facility use dose modulation, iterative reconstruction, and/or weight-based dosing when appropriate to reduce radiation dose to as low as reasonably achievable. Dictated by Chetan Bailey MD @ 01/24/2021 4:13:19 AM (Electronically Signed)
== END 2021-01-24 05:04 | disposition home or self-care (01) ==
LOC: MW.ED 02:58
DX: N23 Unspecified renal colic (principal); Z88.8 Allergy status to other drugs, medicaments and biological substances; Z79.01 Long term (current) use of anticoagulants; Z86.718 Personal history of other venous thrombosis and embolism
CPT/HCPCS: 36415; 74176; 80053; 81001; 85025; 96374; 99284; J1885; J7030